=== PATIENT | male | born 1970 | race Caucasian/White ===

== ENCOUNTER 2021-06-25 05:03 | Emergency (ER) | payer SELFPAY ==
[~2021-06-25] VITALS: Ht 180.3 cm; Wt 77.0 kg
[2021-06-25] MEDS ORDERED: SODIUM CHLORIDE 0.9% 1,000 ML IV ONE (05:30)
[2021-06-25 09:29] VITALS: BP 100/60
== END 2021-06-25 09:46 | disposition home or self-care (01) ==
LOC: ER 05:34
DX: F10.129 Alcohol abuse with intoxication, unspecified (principal); Y90.9 Presence of alcohol in blood, level not specified
CPT/HCPCS: 96360; 99283; J7030

== ENCOUNTER 2021-08-07 19:04 | Emergency (ER) | payer MEDICAID ==
[~2021-08-07] VITALS: Ht 175.3 cm; Wt 75.0 kg
[2021-08-07 20:43] LABS: CLARITY URINE CLEAR (CLEAR); COLOR URINE YELLOW (YELLOW); KETONES URINE NEGATIVE (NEGATIVE); LEUKOCYTE ESTERASE URINE NEGATIVE (NEGATIVE); NITRITE URINE NEGATIVE (NEGATIVE); OCCULT BLOOD URINE NEGATIVE (NEGATIVE); PROTEIN URINE NEGATIVE (NEGATIVE); SPECIFIC GRAVITY URINE 1.005 (1.005-1.030)
[2021-08-07 20:49] LABS: *AMPHETAMINES SCREEN URINE NEGATIVE (NEGATIVE); *BARBITURATES SCREEN URINE NEGATIVE (NEGATIVE); *BENZODIAZEPINES SCREEN URINE NEGATIVE (NEGATIVE); *COCAINE SCREEN URINE NEGATIVE (NEGATIVE); CANNABINOID URINE SCREEN NEGATIVE (NEGATIVE); METHADONE URINE SCREEN NEGATIVE (NEGATIVE); OPIATES URINE SCREEN NEGATIVE (NEGATIVE); PHENCYCLIDINE URINE SCREEN NEGATIVE (NEGATIVE)
[2021-08-07 21:15] LABS: BASOPHILS % 0.4 % (0.0-2.0); EOSINOPHILS % 5.1 % (0.0-5.0); HEMOGLOBIN. 11.7 g/dL (14.0-18.0); LYMPHOCYTES % 41.5 % (20.0-50.0); MEAN CORPUSCULAR HEMOGLOBIN 31.6 pg (28.0-32.0); MEAN CORPUSCULAR VOLUME 97.4 fL (80.0-94.0); MEAN PLATELET VOLUME 9.5 fl (7.4-10.4); MONOCYTES % 11.4 % (2.0-8.0); NEUTROPHILS % 41.6 % (40.0-76.0); PLATELET 86 x1000/uL (130-400); RED BLOOD CELL COUNT 3.69 mill/uL (4.7-6.1); RED CELL DISTRIBUTION WIDTH 21.1 % (11.6-14.6)
[2021-08-07 21:24] LABS: CHLORIDE 115 mEq/L (98-107)
[2021-08-07 21:54] LABS: ETHANOL BLOOD 425 mg/dL
[2021-08-08 04:51] VITALS: BP 107/62
== END 2021-08-08 06:36 | disposition home or self-care (01) ==
LOC: ER 19:04
DX: F10.229 Alcohol dependence with intoxication, unspecified (principal); K70.30 Alcoholic cirrhosis of liver without ascites; Y90.8 Blood alcohol level of 240 mg/100 ml or more; R45.851 Suicidal ideations
CPT/HCPCS: 36415; 80053; 80305; 80307; 80320; 80329; 81003; 85025; 99284; G0480

== ENCOUNTER 2021-08-19 13:09 | Emergency (ER) | payer MEDICAID ==
[~2021-08-19] VITALS: Ht 182.9 cm; Wt 80.0 kg
[2021-08-19 13:12] VITALS: BP 132/84
[2021-08-19] MEDS ORDERED: SODIUM CHLORIDE 0.9% 1,000 ML IV ONE (13:45)
[2021-08-19 14:39] LABS: BASOPHILS % 0.5 % (0.0-2.0); EOSINOPHILS % 2.4 % (0.0-5.0); HEMATOCRIT. 32.5 % (42.0-52.0); HEMOGLOBIN. 10.9 g/dL (14.0-18.0); LYMPHOCYTES % 35.2 % (20.0-50.0); MEAN CORPUSCULAR HEMOGLOBIN 32.5 pg (28.0-32.0); MEAN CORPUSCULAR VOLUME 96.9 fL (80.0-94.0); MEAN PLATELET VOLUME 9.1 fl (7.4-10.4); MONOCYTES % 10.1 % (2.0-8.0); NEUTROPHILS % 51.8 % (40.0-76.0); PLATELET 65 x1000/uL (130-400); RED BLOOD CELL COUNT 3.36 mill/uL (4.7-6.1); RED CELL DISTRIBUTION WIDTH 19.3 % (11.6-14.6)
[2021-08-19 14:47] LABS: CHLORIDE 115 mEq/L (98-107)
[2021-08-19 15:01] LABS: ETHANOL BLOOD 426 mg/dL
== END 2021-08-19 19:14 | disposition home or self-care (01) ==
LOC: ER 13:25
DX: F10.229 Alcohol dependence with intoxication, unspecified (principal); Y90.8 Blood alcohol level of 240 mg/100 ml or more; M79.18 Myalgia, other site
CPT/HCPCS: 36415; 70450; 80053; 80320; 85025; 96360; 99284; J7030; G0480

== ENCOUNTER 2021-08-28 09:43 | Emergency (ER) | payer MEDICAID ==
[~2021-08-28] VITALS: Ht 172.7 cm; Wt 68.0 kg
[2021-08-28 10:56] VITALS: BP 142/87
== END 2021-08-28 10:57 | disposition home or self-care (01) ==
LOC: ER 10:16
DX: F10.229 Alcohol dependence with intoxication, unspecified (principal); Y90.0 Blood alcohol level of less than 20 mg/100 ml
CPT/HCPCS: 99283

== ENCOUNTER 2021-10-06 08:03 | Emergency (ER) | payer MEDICAID ==
[2021-10-06 15:06] LABS: CHLORIDE 115 mEq/L (98-107); ETHANOL BLOOD 18 mg/dL
[2021-10-06 16:09] VITALS: BP 132/77
[2021-10-06 17:00] LABS: BASOPHILS % 0.9 % (0.0-2.0); EOSINOPHILS % 2.2 % (0.0-5.0); HEMATOCRIT. 33.5 % (42.0-52.0); HEMOGLOBIN. 11.4 g/dL (14.0-18.0); LYMPHOCYTES % 38.4 % (20.0-50.0); MEAN CORPUSCULAR HEMOGLOBIN 32.9 pg (28.0-32.0); MEAN CORPUSCULAR VOLUME 96.3 fL (80.0-94.0); MEAN PLATELET VOLUME 9.8 fl (7.4-10.4); MONOCYTES % 11.8 % (2.0-8.0); NEUTROPHILS % 46.7 % (40.0-76.0); PLATELET 95 x1000/uL (130-400); RED BLOOD CELL COUNT 3.48 mill/uL (4.7-6.1); RED CELL DISTRIBUTION WIDTH 16.9 % (11.6-14.6)
== END 2021-10-06 16:11 | disposition home or self-care (01) ==
LOC: ER 08:03
DX: F10.229 Alcohol dependence with intoxication, unspecified (principal); Y90.0 Blood alcohol level of less than 20 mg/100 ml
CPT/HCPCS: 36415; 80053; 80320; 85025; 99283; G0480

== ENCOUNTER 2022-02-16 12:30 | Emergency (ER) | payer MEDICAID ==
[~2022-02-16] VITALS: Ht 180.3 cm; Wt 100.0 kg
[2022-02-16 12:35] VITALS: BP 126/88
[2022-02-16] MEDS ORDERED: SODIUM CHLORIDE 0.9% 1,000 ML IV ONE (13:00)
== END 2022-02-16 16:13 | disposition home or self-care (01) ==
LOC: ER 12:30
DX: F10.129 Alcohol abuse with intoxication, unspecified (principal); Y90.9 Presence of alcohol in blood, level not specified
CPT/HCPCS: 99283; J7030